=== PATIENT | male | born 1970 | race Caucasian/White ===

== ENCOUNTER 2019-02-22 13:29 | Inpatient (IN) | payer OTHER ==
[~2019-02-22] VITALS: Ht 170.2 cm; Wt 69.0 kg
[2019-02-22] VITALS (7 sets, daily range): BP systolic 108–126; BP diastolic 63–87
[2019-02-22] MEDS ORDERED: CLON2 PO (14:26)
[2019-02-22] MEDS ORDERED: SERT50TA12 PO (14:26)
[2019-02-22] MEDS ORDERED: LOSA50TA64 PO (14:26)
[2019-02-22] MEDS ORDERED: ACETAMINOPHEN 325 MG TABLET PO PRN ×2 (14:45→21:45)
[2019-02-22] MEDS ORDERED: ONDANSETRON HCL 4 MG/2 ML VIAL IVP PRN ×2 (14:45→21:45)
[2019-02-22 14:54] LABS: BASOPHILS % (AUTO) 0.7 % (0.0-2.0); EOSINOPHILS % (AUTO) 0.6 % (1.0-6.0); LYMPHOCYTES % (AUTO) 17.1 % (22.0-44.0); MEAN CORPUSCULAR HGB CONC 32.5 G/dL (31.0-37.0); MEAN CORPUSCULAR VOLUME 92 fL (80-100); MONOCYTES # (AUTO) 0.4 K/uL (0.1-1.0); MONOCYTES % (AUTO) 6.8 % (2.0-9.0); NEUTROPHILS # (AUTO) 4.3 K/uL (1.8-7.7); NEUTROPHILS % (AUTO) 74.8 % (40.0-70.0); PLATELET COUNT (AUTO) 247 K/uL (150-450); RED BLOOD CELL COUNT(AUTO) 4.99 MIL/uL (4.50-5.90); RED CELL DISTRIBUTION WIDTH 13.6 % (11.5-14.5)
[2019-02-22 15:03] LABS: ANION GAP 6 mmol/L (8-16); CALCIUM, TOTAL 8.9 mg/dL (8.8-10.5); CARBON DIOXIDE 30 mmol/L (22-29); CHLORIDE 105 mmol/L (98-107); CREATININE 0.95 mg/dL (0.60-1.30); GLOMERULAR FILTR. RATE CALC > 60 mL/min (>60); GLUCOSE,RANDOM 110 mg/dL (70-110); POTASSIUM 4.6 mmol/L (3.5-5.1); SODIUM SERUM 141 mmol/L (136-145); UREA NITROGEN, BLOOD 8 mg/dL (7-18)
[2019-02-22 15:09] LABS: ALANINE AMINOTRANSFERASE 19 U/L (12-78); ALKALINE PHOSPHATASE 99 U/L (46-116); ASPARTATE AMINOTRANSFERASE 13 U/L (15-37); BILIRUBIN,TOTAL 0.5 mg/dL (0.1-1.0); TOTAL PROTEIN, SERUM 7.4 g/dL (6.4-8.2)
[2019-02-22 15:27] LABS: AMPHET/METH SCREEN,URINE NEGATIVE (NEGATIVE); BARBITURATE SCREEN, URINE NEGATIVE (NEGATIVE); BENZODIAZEPINES SCREEN,URINE NEGATIVE (NEGATIVE); CANNABINOID SCREEN,URINE NEGATIVE (NEGATIVE); COCAINE SCREEN,URINE NEGATIVE (NEGATIVE); METHADONE SCREEN, URINE NEGATIVE (NEGATIVE); OPIATE SCREEN,URINE NEGATIVE (NEGATIVE); PHENCYCLIDINE SCREEN,URINE NEGATIVE (NEGATIVE)
[2019-02-22] MEDS ORDERED: DIAZEPAM 10 MG TABLET PO PRN (17:00)
[2019-02-22] MEDS ORDERED: PNEUMOCOCCAL VACCINE POLYVALENT 0.5 ML VIAL [PPSV23] IM ONE (18:15)
[2019-02-22] MEDS ORDERED: MAGNESIUM HYDROXIDE SUSPENSION 30 ML UDCUP PO PRN (21:45)
[2019-02-22] MEDS ORDERED: BISACODYL 10 MG RECTAL RECTAL SUPPOSITORY PR PRN (21:45)
[2019-02-22] MEDS ORDERED: ZOLPIDEM TARTRATE 5 MG TABLET PO PRN (21:45)
[2019-02-23] VITALS: BP 111/64
[2019-02-23 03:31] VITALS: BP 111/65
[2019-02-23] MEDS ORDERED: DIAZEPAM 10 MG TABLET PO PRN (07:00)
[2019-02-23 07:35] VITALS: BP 109/72
[2019-02-23] MEDS ORDERED: DIAZEPAM 10 MG TABLET PO SCH (09:00)
[2019-02-23] MEDS: PANTOPRAZOLE SODIUM 40 MG DR TABLET PO SCH (09:56)
[2019-02-23] MEDS: DOCUSATE SODIUM 100 MG CAPSULE PO SCH ×2 (09:56→19:55)
[2019-02-23] MEDS: SERTRALINE HCL 100 MG TABLET PO SCH (11:33)
[2019-02-23 12:00] VITALS: BP 112/63
[2019-02-23 16:35] VITALS: BP 117/65
[2019-02-23 19:54] VITALS: BP 131/86
[2019-02-24 00:10] VITALS: BP 107/56
[2019-02-24 06:09] VITALS: BP 108/66
[2019-02-24 07:49] VITALS: BP 113/78
[2019-02-24] MEDS: DOCUSATE SODIUM 100 MG CAPSULE PO SCH (07:57)
[2019-02-24] MEDS: SERTRALINE HCL 100 MG TABLET PO SCH (08:02)
[2019-02-24] MEDS: PANTOPRAZOLE SODIUM 40 MG DR TABLET PO SCH (08:02)
[2019-02-24 11:33] VITALS: BP 151/56
[2019-02-25] MEDS ORDERED: DIAZEPAM 10 MG TABLET PO PRN (07:00)
[2019-02-25] MEDS ORDERED: DIAZEPAM 10 MG TABLET PO SCH (09:00)
[2019-02-26] MEDS ORDERED: DIAZEPAM 10 MG TABLET PO PRN (07:00)
== END 2019-02-24 13:10 | DRG 309 ==
LOC: EMS 13:31 → 5N 16:16
PROVIDERS: ADMIT Internal Medicine; ATTEND Internal Medicine
DX: R00.1 Bradycardia, unspecified (principal); F13.239 Sedative, hypnotic or anxiolytic dependence with withdrawal, unspecified; I10 Essential (primary) hypertension; F41.9 Anxiety disorder, unspecified; F32.9 Major depressive disorder, single episode, unspecified; Z28.21 Immunization not carried out because of patient refusal; Z79.899 Other long term (current) drug therapy; Z90.49 Acquired absence of other specified parts of digestive tract
CPT/HCPCS: 84443; G0378; G0480